=== PATIENT | male | born 1995 | race African-American/Black ===

== ENCOUNTER 2018-06-11 22:15 | Emergency (ER) | payer SELFPAY ==
[2018-06-11] MEDS: NS 1,000 ML IV (23:00)
[2018-06-11 23:19] LABS: BASO # 0.1 10^3/uL (0.0-0.2); BASO % 0.3 % (0.0-1.0); EOS # 0.3 10^3/uL (0.0-0.50); EOS % 1.6 % (0.0-3.0); HEMATOCRIT 44.5 % (42.0-52.0); HEMOGLOBIN 14.8 g/dl (13.5-17.5); IMMATURE GRANULOCYTE % 0.4 % (0-3.0); LYMPH # 2.1 10^3/uL (1.5-6.5); LYMPH % 13.8 % (24.0-44.0); MEAN CORPUSCULAR HEMOGLOBIN 28.6 pg (27.0-33.0); MEAN CORPUSCULAR HGB CONC 33.3 g/dl (32.0-36.5); MEAN CORPUSCULAR VOLUME 86.1 fl (80.0-96.0); MONO # 1.2 10^3/uL (0.0-0.8); MONO % 7.9 % (0.0-5.0); NEUTROPHILS # 11.7 10^3/uL (1.8-7.7); PLATELET COUNT, AUTOMATED 195 10^3/uL (150-450); RED BLOOD COUNT 5.17 10^6/uL (4.30-6.10); RED CELL DISTRIBUTION WIDTH 13.5 % (11.5-14.5); WHITE BLOOD COUNT 15.4 10^3/uL (4.0-10.0)
[2018-06-11 23:30] LABS: INR 0.97
[2018-06-11 23:39] LABS: LACTIC ACID SEPSIS PROTOCOL 1.3 MMOL/L (0.4-2.0)
[2018-06-11] MEDS: ONDANSETRON 4MG/2ML VIAL (J2405) IV (23:43)
[2018-06-11] MEDS: MORPHINE 4 MG/ML 1ML VIAL/SYRINGE (J2270) IV (23:44)
[2018-06-11 23:48] LABS: ALBUMIN 3.9 GM/DL (3.2-5.2); ALKALINE PHOSPHATASE 89 U/L (45-117); ALT/SGPT 21 U/L (12-78); AMYLASE 50 U/L (25-115); ANION GAP 8 MEQ/L (8-16); AST/SGOT 33 U/L (7-37); BILIRUBIN,DIRECT 0.1 MG/DL (0.0-0.2); BILIRUBIN,TOTAL 0.5 MG/DL (0.2-1.0); BLOOD UREA NITROGEN 8 MG/DL (7-18); CALCIUM LEVEL 8.5 MG/DL (8.5-10.1); CARBON DIOXIDE LEVEL 24 MEQ/L (21-32); CHLORIDE LEVEL 108 MEQ/L (98-107); CREATININE FOR GFR 1.25 MG/DL (0.70-1.30); GLOMERULAR FILTRATION RATE > 60.0 (>60); GLUCOSE, FASTING 104 MG/DL (70-100); LIPASE 67 U/L (73-393); POTASSIUM SERUM 3.6 MEQ/L (3.5-5.1); SODIUM LEVEL 140 MEQ/L (136-145); TOTAL PROTEIN 7.8 GM/DL (6.4-8.2)
[2018-06-12] MEDS: GASTROGRAFIN SOLUTION 30ML PO ×2 (00:05→00:09)
[2018-06-12] MEDS ORDERED: ISOVUE-370 76% 100ML VIAL (Q9967) As Ordered (00:46)
[2018-06-12 02:19] LABS: KETONE, URINE AUTO RFX 1+ mg/dL (NEGATIVE); LEUKOCYTE ESTERASE UR AUTO RFX NEGATIVE (NEGATIVE); MUCUS, URINE RFX SMALL (NEGATIVE); NITRITE, URINE AUTO RFX NEGATIVE (NEGATIVE); RBC, URINE AUTO RFX 128 /HPF (0-3); SPECIFIC GRAVITY UR AUTO RFX 1.036 (1.002-1.035); SQUAM EPITHELIAL CELL UR AURFX 0 /HPF (0-6)
[2018-06-12 02:38] LABS: WBC, URINE AUTO RFX 14 /HPF (0-3)
[2018-06-12] MEDS ORDERED: KETOROLAC 30 MG/ML VIAL (J1885) IV (02:45)
[2018-06-12] MEDS: OXYCODONE/APAP 5MG/325MG(BULK FOR ED) 1 TABLET PO (03:15)
== END 2018-06-12 03:43 | disposition home or self-care (01) ==
LOC: M ED 06-12 03:43
DX: N20.1 Calculus of ureter (principal)
CPT/HCPCS: J2270

== ENCOUNTER 2022-03-06 10:50 | Emergency (ER) | payer SELFPAY ==
[~2022-03-06] VITALS: Ht 190.5 cm; Wt 88.1 kg
[2022-03-06 10:50] VITALS: BP 123/69
[~2022-03-06 10:50] MED LIST: FLOM0.4C39 PO; IBUP200T46 PO; PERC5TAB12 PO; ZOFR4TAB14 PO
== END 2022-03-06 11:59 | disposition home or self-care (01) ==
LOC: M ED 10:50
DX: S93.602A Unspecified sprain of left foot, initial encounter (principal); W19.XXXA Unspecified fall, initial encounter; Y92.018 Other place in single-family (private) house as the place of occurrence of the external cause; Z91.010 Allergy to peanuts; Z77.098 Contact with and (suspected) exposure to other hazardous, chiefly nonmedicinal, chemicals